=== PATIENT | female | born 1940 | race Caucasian/White ===

== ENCOUNTER → 2019-10-26 | Outpatient (CLI) | payer MEDICARE, OTHER | END | disposition home or self-care (01) | LOC: RAD 15:35 | PROVIDERS: ATTEND Physician Assistant | DX: M48.02 Spinal stenosis, cervical region (principal); M47.22 Other spondylosis with radiculopathy, cervical region; M48.03 Spinal stenosis, cervicothoracic region; M48.04 Spinal stenosis, thoracic region; M25.78 Osteophyte, vertebrae | CPT/HCPCS: 72141 ==